=== PATIENT | female | born 1980 | race Caucasian/White ===

== ENCOUNTER 2019-04-07 15:55 | Emergency (ER) | payer BC ==
[2019-04-07 16:15] VITALS: BP 120/83
--- NOTE | 2019-04-07 17:27 | UC ---
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 Denies fever, chills, + sinus congestion. no ear pain, throat pain. no other symptoms. no improvement pver past weeks. during day, dry hacking cough. lying down/ in AM- cough productive- green / yellow sputum. no recent illnesses, no recent abx. - History of Current Complaint Chief Complaint: UCRespiratory Stated Complaint: COUGH Time Seen by Provider: 04/07/19 16:25 Hx Obtained From: Patient Hx Last Menstrual Period: 04/03/19 ?: No Onset/Duration: Sudden Onset Severity: Mild Pain Intensity: 0 Pain Scale Used: 0-10 Numeric Cough: Productive Associated Signs & Symptoms: Positive: Sinus Discomfort, Nasal Discharge. Negative: Dysphagia, FB Sensation, Hoarseness, Fever, Vomiting, Rash - Allergies/Home Medications Allergies/Adverse Reactions: Allergies Allergy/AdvReac Type Severity Reaction Status Date / Time No Known Allergies Allergy Verified 04/07/19 16:13 PMH/Surg Hx/FS Hx/Imm Hx Previously Healthy: Yes - Surgical History Surgical History: None - Family History Known Family History: Positive: Non-Contributory Negative: Diabetes - Social History Occupation: Employed Full-time Alcohol Use: Occasionally Substance Use Type: None Smoking Status (MU): Never Smoked Tobacco - Immunization History Most Recent Influenza Vaccination: Not the 2015/2016 Season Review of Systems All Other Systems Reviewed And Are Negative: Yes Constitutional: Negative: Fever, Chills, Fatigue ENT: Positive: Sinus Congestion, Sinus Pain/Tenderness Respiratory: Positive: Cough Cardiovascular: Positive: Negative Musculoskeletal: Positive: Negative Neurological: Positive: Negative Psychological: Positive: Negative Is Patient Immunocompromised?: No Physical Exam Triage Information Reviewed: Yes Appearance: No Pain Distress, Well-Nourished, Ill-Appearing - mild Vital Signs: Initial Vital Signs Temp 97.8 F 04/07/19 16:11 Pulse 78 04/07/19 16:11 Resp 16 04/07/19 16:11 BP 120/83 04/07/19 16:11 Pulse Ox 99 04/07/19 16:11 Vital Signs Reviewed: Yes Eyes: Positive: Conjunctiva Clear ENT: Positive: Pharynx normal, TMs normal, Uvula midline. Negative: TM bulging , TM dull, TM red, Tonsillar swelling, Tonsillar exudate, Sinus tenderness Neck: Positive: Supple, Nontender, No Lymphadenopathy. Negative: Nuchal Rigidity, Enlarged Nodes @ Respiratory: Positive: Chest non-tender, Lungs clear, Normal breath sounds, No respiratory distress, No accessory muscle use. Negative: Respiratory distress, Crackles, Rhonchi, Stridor, Wheezing Cardiovascular: Positive: RRR, No Murmur Abdomen Description: Negative: CVA Tenderness (R), CVA Tenderness (L) Neurological Exam: Normal Skin Exam: Normal Throat Pain/Nasal Course/Dx - Course Course Of Treatment: Sinusitis - Antibiotics at directed - Increase fluids - Humidifier at night to help with symptoms - Over the counter medications to help with symptoms, such as tylenol for pain/ chills. - Go to ER with shortness of breath, increased coughing, fever > 102F. Augmentin in Breast Milk: Amoxicillin is present in breast milk following administration amoxicillin/ clavulanate (Tre 1984). The relative infant dose (RID) of amoxicillin following administration of amoxicillin/clavulanate is 0.02% to 0.07% when calculated using the highest average breast milk concentration located and compared to an therapeutic dose of 25 to 90 mg/kg/day. In general, is considered acceptable when the RID is <10% (Nabil 2016; Yassine 2000). Using the highest average milk concentration (0.12 mcg/mL), the estimated daily infant dose via breast milk is 0.018 mg/kg/day. This milk concentration was obtained 4 to 6 hours following maternal administration of oral amoxicillin/ clavulanate 250 mg/125 mg (Zack 1982). Constipation, diarrhea, restlessness, and rash have been reported in infants exposed to amoxicillin and clavulanate; reversible elevations in AST and ALT have been noted in one (Radhames 2005). The alarm signaler warns of the potential for allergic sensitization in the . In general, antibiotics that are present in breast milk may cause non-dose- related modification of bowel robert. Monitor infants for GI disturbances, such as thrush and diarrhea (WHO 2002). Although the alarm signaler recommends that caution be exercised when administering amoxicillin and clavulanate to women, amoxicillin/ clavulanate is considered compatible with when used in usual recommended doses (WHO 2002). - Differential Dx/Diagnosis Differential Diagnosis/HQI/PQRI: Pharyngitis, Sinusitis, URI Provider Diagnosis: Sinusitis Discharge ED - Sign-Out/Discharge Documenting (check all that apply): Patient Departure All imaging exams completed and their final reports reviewed: No Studies - Discharge Plan Condition: Stable Disposition: HOME Prescriptions: Amoxicillin/Clavulanate TAB* [Augmentin TAB 875*] 875 mg PO BID #14 tab Patient Education Materials: Sinusitis (ED) Referrals: No Primary Care Phys,NOPCP [Primary Care Provider] - Additional Instructions: - Antibiotics at directed - Increase fluids - Humidifier at night to help with symptoms - Over the counter medications to help with symptoms, such as tylenol for pain/ chills. - Go to ER with shortness of breath, increased coughing, fever > 102F. Augmentin in Breast Milk: Amoxicillin is present in breast milk following administration amoxicillin/ clavulanate (Tre 1984). The relative dose (RID) of amoxicillin following administration of amoxicillin/clavulanate is 0.02% to 0.07% when calculated using the highest average breast milk concentration located and compared to an therapeutic dose of 25 to 90 mg/kg/day. In general, is considered acceptable when the RID is <10% (Nabil 2016; Yassine 2000). Using the highest average milk concentration (0.12 mcg/mL), the estimated daily dose via breast milk is 0.018 mg/kg/day. This milk concentration was obtained 4 to 6 hours following maternal administration of oral amoxicillin/ clavulanate 250 mg/125 mg (Zack 1982). Constipation, diarrhea, restlessness, and rash have been reported in infants exposed to amoxicillin and clavulanate; reversible elevations in AST and ALT have been noted in one (Radhames 2005). The alarm signaler warns of the potential for allergic sensitization in the . In general, antibiotics that are present in breast milk may cause non-dose- related modification of bowel robert. Monitor infants for GI disturbances, such as thrush and diarrhea (WHO 2002). Although the alarm signaler recommends that caution be exercised when administering amoxicillin and clavulanate to women, amoxicillin/ clavulanate is considered compatible with when used in usual recommended doses (WHO 2002). - Billing Disposition and Condition Condition: STABLE Disposition: Home
== END 2019-04-07 16:55 | disposition home or self-care (01) ==
LOC: UCCORT 15:55
DX: J32.9 Chronic sinusitis, unspecified (principal)
CPT/HCPCS: 99202; G0463